=== PATIENT | male | born 1955 | race African-American/Black ===

== ENCOUNTER 2020-09-01 20:48 | Observation (INO) | payer OTHER ==
[~2020-09-01] VITALS: Ht 175.3 cm; Wt 89.0 kg
--- NOTE | 2020-09-01 21:00 | NUR ---
PT ARRIVED VIA EMS AND PLACED IN ROOM 2 DO TO BED AVAILABILITY. PT FROM [facility] AND IN CUFFS/SHACKLES. CUFFED TO BED WITH RIGHT CUFF. PT TRIAGED AT BEDSIDE.
[2020-09-01] MEDS ORDERED: ASPIRIN81 MG PO (21:33)
[2020-09-01] MEDS ORDERED: HYDROCHLOROT25 MG PO (21:33)
[2020-09-01 21:52] LABS: HEMATOCRIT 41.5 % (39.0-50.0); IMMATURE GRANULOCYTES 0.3 % (0.0-5.0); MEAN CELL VOLUME 91.6 fL CALC (80.0-100.0); MEAN CORPUSCULAR HGB 28.7 pG CALC (26.0-32.0); MEAN CORPUSCULAR HGB CONC 31.3 g/dL CAL (32.0-36.0); NEUT# 1.63 thou/uL (1.82-7.42); RED BLOOD COUNT 4.53 mill/uL (4.70-6.10); RED CELL DISTRI WIDTH 12.8 % (11.5-15.5)
[2020-09-01 22:16] LABS: ALKALINE PHOSPHATASE 60 u/l (38-126); ANION GAP 11 (6-22 (CALC)); BILIRUBIN, TOTAL 0.3 mg/dL (0.0-1.4); BUN 12 mg/dL (8-23); BUN/CREATININE RATIO 14 (12-20 (CALC)); CARBON DIOXIDE 26 mmol/l (22-30); CHLORIDE 105 mmol/l (95-108); CREATININE 0.9 mg/dL (0.7-1.3); GFR > 60 ML/MIN (>=60 (CALC)); GFR FOR AFR.AMER. > 60 ML/MIN (>=60 (CALC)); POTASSIUM 3.8 mmol/l (3.5-5.1); SGOT/AST 22 u/l (19-48); SODIUM 139 mmol/l (137-146); TOTAL PROTEIN 7.5 g/dL (6.3-8.2)
--- NOTE | 2020-09-01 22:41 | NUR ---
PT MOVED FROM ROOM 2 TO EX 15 FOR MONITORING EQUIP. GUARDS WITH PT.
--- NOTE | 2020-09-02 | NUR ---
RESTING QUIETLY AWAITING DISPO.
--- NOTE | 2020-09-02 00:41 | NUR ---
NO SIGNIFICANT CHANGE NOTED. AWAITING DISPO.
--- NOTE | 2020-09-02 02:11 | NUR ---
Admission Note Report Given to: PRACHI CRENSHAW Transported by: X Wheelchair Stretcher Transported with: X Nurse Transporter X Patent IV O2 X Forming Machine Operator Location: ICU X MS2
--- NOTE | 2020-09-02 02:30 | NUR ---
PT RECEIVED FROM E.R VIA WHEELCHAIR ACCOMPANIED BY STAFF AND TWO [facility] GUARDS. PT ASSISTED IN TO BED, GAIT IS STEADY. PT IS PLEASANT AND COOPERATIVE. RESP EVEN AND UNLABORED. SKIN WARM,DRY AND INTACT . LUNGS CLEAR BILAT. ABD SOFT AND NONDISTENDED WITH BOWEL SOUNDS PRESENT. TELE SB HR 50'S. NO LOWER EXT EDEMA NOTED. PEDAL PULSES PALPATED BILAT. HEPLOCK PATENT IN RT A.C. TELE SB. PT DENIES ANY DISCOMFORT. ORIENTED TO CALL SNEED . CUFFED TO BED AT ANKLE. TWO [facility] GUARDS AT BEDSIDE. WILL CONTINUE TO CLOSELY MONITOR. FREQUENT ROUNDS MADE. CALL SNEED WITHIN REACH .
[2020-09-02 02:32] VITALS: BP 125/75
[2020-09-02 03:38] VITALS: BP 119/73
--- NOTE | 2020-09-02 04:10 | NUR ---
PT RESTING IN BED. RESP EVEN AND UNLABORED. HEPLOCK PATENT. NO DISTRESS NOTED. 2 GUARDS AT BEDSIDE. ASSESSMENT UNCHANGED. FREQUENT ROUNDS MADE. CALL SNEED WITHIN REACH.
[2020-09-02 07:17] VITALS: BP 102/59
--- NOTE | 2020-09-02 08:00 | NUR ---
ASSESSMENT DONE. PATIENT IS ALERT AND ORIENT X3. PATIENT DENIES CHEST PAIN ONLY BACK PAIN 11/14 MEDICATED PATIENT WITH MOTRIN. LUNGS SOUND CLEAR. TELE IN PLACE. PO FLUIDS PROVIDED. PATIENT STATED HE HAS NOT HAD A BM FOR FEW DAYS. MEIDCAITED PATIENT WITH MILK OF MAGNESIA. X2 GUARDS IN ROOM. PATIENT DENIES ANY OTHER NEEDS AT THIS TIME. CALL LIGHT IN REACH.
[2020-09-02] MEDS ORDERED: ATORVASTATIN CA20 MG PO (10:50)
--- NOTE | 2020-09-02 11:08 | NUR ---
CALLED NURSE LULINER FROM [facility] TO GIVE REPORT.
--- NOTE | 2020-09-02 11:42 | NUR ---
Discharge instructions given. Patient verbalizes understanding of same. [facility] stable [facility] AND X2 GUARDS. All belongings sent with pt.
== END 2020-09-02 11:42 | DRG 313 ==
LOC: ED 20:48 → ED-I 23:42 → ED 09-02 00:12 → MS2 09-02 00:13
PROVIDERS: Emergency Medicine; ADMIT Internal Medicine; ATTEND Internal Medicine
DX: R07.9 Chest pain, unspecified (principal); R94.31 Abnormal electrocardiogram [ECG] [EKG]; I25.10 Atherosclerotic heart disease of native coronary artery without angina pectoris; I10 Essential (primary) hypertension; K21.9 Gastro-esophageal reflux disease without esophagitis; I25.2 Old myocardial infarction; Z79.82 Long term (current) use of aspirin; Z20.822 Contact with and (suspected) exposure to COVID-19
CPT/HCPCS: G0378